=== PATIENT | female | born 1995 | race Caucasian/White ===

== ENCOUNTER 2017-11-12 21:36 | Emergency (ER) | payer BC | END 2017-11-13 01:58 | disposition home or self-care (01) | LOC: FTE 21:36 | DX: S06.0X1A Concussion with loss of consciousness of 30 minutes or less, initial encounter (principal); W20.8XXA Other cause of strike by thrown, projected or falling object, initial encounter; Y92.9 Unspecified place or not applicable | CPT/HCPCS: 99283 ==